=== PATIENT | male | born 1965 | race Caucasian/White ===

== ENCOUNTER 2017-09-12 10:07 | Inpatient (IN) | payer OTHER ==
[~2017-09-12] VITALS: Ht 180.3 cm; Wt 95.3 kg
[2017-09-12 10:07] VITALS: BP 185/107
[~2017-09-12 10:07] MED LIST: ADULT LOW DOSE81 MG PO; AMOXICILLIN875 MG PO; ATENOLOL; BYSTOLIC 5 MG5 M1 PO; CENTRUM SILVER1 EAC2 PO; FLOMAX PO; HIGH CHOLESTEROL; KEFLEX500 MG PO; KLOR-CON 1010 MEQ PO; LIPITOR 20 MG T20 M1 PO; METOPROLOL; NASONEX17 GM INH; NORCO 5-325 TA1 EACH PO; POTASSIUM20 PO; TOPROL XL50 MG; VERAPAMIL ER120 MG PO; VERAPAMIL ER180 MG PO; VITAMIN C120 GM PO; VITAMIN D35000 UNIT PO; ZYRTEC10 M2 PO; [UNRECOGNIZED DRUG - REMARK]
[2017-09-12 10:47] LABS: ABSOLUTE NEUTROPHILS 8.2 thou/uL (1.4-8.2); BASOPHILS 0.6 % (0.0-2.0); EOSINOPHILS 1.5 % (0.0-3.0); HEMATOCRIT 44.1 % (42.0-52.0); HEMOGLOBIN 14.5 gm/dL (14.0-18.0); LYMPHOCYTES 18.7 % (24.0-44.0); MCH 28.9 pg (26.0-34.0); MCHC 32.8 g/dL (28.0-37.0); MONOCYTES 5.4 % (1.0-8.0); PLATELET COUNT 220 thou/uL (150-400); POLYS 73.8 % (36.0-66.0); RBC 5.01 mil/uL (4.50-6.00); RDW 13.9 % (10.5-14.5); WBC 11.1 thou/uL (4.0-11.0)
[2017-09-12 10:59] LABS: MANUAL DIFF NO
[2017-09-12 11:03] LABS: CALCIUM 8.7 mg/dL (8.5-10.1); CREATININE 1.3 mg/dL (0.7-1.3); POTASSIUM 3.5 mmol/L (3.5-5.1)
[2017-09-12 11:09] LABS: TOTAL BILIRUBIN 0.5 mg/dL (<0.1-1.0); TOTAL PROTEIN 7.9 g/dL (6.4-8.2)
[2017-09-12 12:08] LABS: URINE BILIRUBIN NEGATIVE (Negative); URINE BLOOD 3+ (Negative); URINE COLOR YELLOW; URINE GLUCOSE-RANDOM* NEGATIVE (Negative); URINE KETONES NEGATIVE (Negative); URINE NITRITE NEGATIVE (Negative); URINE PROTEIN (DIPSTICK) TRACE (Negative); URINE SPECIFIC GRAVITY >= 1.030 (1.005-1.035); URINE UROBILINOGEN 0.2 E.U./dl (0.2-1.0)
[2017-09-12 12:16] LABS: CASTS None Seen /LPF (None Seen); CRYSTALS None Seen /LPF (None Seen); SQUAMOUS 0-3 Few /LPF (0-3)
[2017-09-12 12:17] LABS: URINE WBC 0-5 Rare /HPF (0-5)
[2017-09-12 12:18] LABS: YEAST Present (None Seen)
[2017-09-12 13:09] VITALS: BP 137/90
[2017-09-12 13:54] VITALS: BP 137/90
[2017-09-12 14:32] VITALS: BP 154/101
[2017-09-12 20:14] VITALS: BP 138/87
[2017-09-13 04:15] VITALS: BP 134/79
[2017-09-13 06:04] LABS: HEMATOCRIT 37.5 % (42.0-52.0); HEMOGLOBIN 12.6 gm/dL (14.0-18.0); MCH 29.6 pg (26.0-34.0); MCHC 33.7 g/dL (28.0-37.0); RBC 4.27 mil/uL (4.50-6.00); WBC 9.3 thou/uL (4.0-11.0)
[2017-09-13 06:08] LABS: CALCIUM 7.9 mg/dL (8.5-10.1); CREATININE 1.2 mg/dL (0.7-1.3); POTASSIUM 3.6 mmol/L (3.5-5.1)
[2017-09-13 06:12] LABS: ALBUMIN 3.1 g/dL (3.4-5.0); PHOSPHORUS 2.9 mg/dL (2.5-4.9)
[2017-09-13 07:36] VITALS: BP 121/75
[2017-09-13] MEDS ORDERED: FLOMAX0.4 MG PO (09:58)
[2017-09-13 14:30] VITALS: BP 121/75
== END 2017-09-13 15:01 | disposition home or self-care (01) | DRG 694 ==
LOC: ER 10:07 → EROBS 12:42 → 4E 12:42
PROVIDERS: Hospitalist; Physician Assistant
DX: N13.2 Hydronephrosis with renal and ureteral calculous obstruction (principal); N13.4 Hydroureter; I10 Essential (primary) hypertension; E78.5 Hyperlipidemia, unspecified; Z95.810 Presence of automatic (implantable) cardiac defibrillator; Z90.49 Acquired absence of other specified parts of digestive tract; Z79.82 Long term (current) use of aspirin; Z79.899 Other long term (current) drug therapy
CPT/HCPCS: 10183

== ENCOUNTER → 2019-06-06 | Outpatient (CLI) | payer OTHER ==
[~2019-06-06] MED LIST changes: +FLOMAX0.4 MG PO
== END ==
LOC: CAT 14:08
DX: Z13.6 Encounter for screening for cardiovascular disorders (principal); E78.00 Pure hypercholesterolemia, unspecified; I25.10 Atherosclerotic heart disease of native coronary artery without angina pectoris

== ENCOUNTER 2019-11-26 14:54 | Emergency (ER) | payer OTHER ==
[~2019-11-26] VITALS: Ht 182.9 cm; Wt 107.5 kg
[2019-11-26] MEDS ORDERED: TOPROL XL100 MG PO (15:21)
[2019-11-26] MEDS ORDERED: VERAPAMIL E.R240 M1 PO (15:21)
[2019-11-26] MEDS ORDERED: CHILDREN'S ZYRT10 M1 PO (15:21)
[2019-11-26] MEDS ORDERED: ALLER-FLO15.8 ML NASAL (15:21)
[2019-11-26] MEDS ORDERED: FISH OIL 1,0001 EAC9 PO (15:22)
[2019-11-26 15:26] LABS: ABSOLUTE NEUTROPHILS 3.5 thou/uL (1.4-8.2); BASOPHILS 0.9 % (0.0-2.0); EOSINOPHILS 2.9 % (0.0-3.0); HEMATOCRIT 43.6 % (42.0-52.0); HEMOGLOBIN 14.4 gm/dL (14.0-18.0); LYMPHOCYTES 28.7 % (24.0-44.0); MCH 29.3 pg (26.0-34.0); MCV 88.9 fL (80.0-100.0); MONOCYTES 7.7 % (1.0-8.0); PLATELET COUNT 216 thou/uL (150-400); POLYS 59.8 % (36.0-66.0); RBC 4.91 mil/uL (4.50-6.00); RDW 13.8 % (10.5-14.5); WBC 5.9 thou/uL (4.0-11.0)
[2019-11-26 15:34] LABS: CALCIUM 8.9 mg/dL (8.5-10.1); CREATININE 1.1 mg/dL (0.7-1.3); POTASSIUM 4.1 mmol/L (3.5-5.1)
[2019-11-26 15:40] LABS: ALBUMIN 3.8 g/dL (3.4-5.0); APTT 28.2 Seconds (24.5-32.8); PROTIME 10.4 Seconds (9.3-11.4); TOTAL BILIRUBIN 0.6 mg/dL (<0.1-1.0); TOTAL PROTEIN 7.6 g/dL (6.4-8.2)
[2019-11-26 16:50] VITALS: BP 138/91
--- NOTE | 2019-11-27 08:20 | EKG ---
[facility] [place] [address] ELECTROCARDIOGRAM REPORT Name: BARB NICOLE Room #: DEP [facility]#: [id number] Admission: 11/26/19 Attend Phys: Discharge: 11/26/19 Date of : 63 Report #: [id number] THIS REPORT FOR: cc: Royer Kang MD, Neal A. MD Couchonnal, Luis F. MD ~ THIS REPORT FOR: //name// [facility] ED Test Date: 2019-11-26 Test Time: 15:58:42 Pat Name: BARB NICOLE Department: Room: Gender: Rock Crusher[facility] 1965 Requested By: Marcial Swain Order Number: [id number] MD: Todd Marie Measurements Intervals [place] Rate: 83 P: 50 VA: 170 QRS: 28 QRSD: 102 T: 17 QT: 372 QTc: 437 Interpretive Statements Sinus rhythm Probable left atrial enlargement Compared to ECG 02/25/2016 15:17:10 Myocardial infarct finding no longer present Electronically Signed On 11-27-2019 8:19:23 PHARMACY CLINICAL SPECIALIST by Todd Marie [email or web address] <ELECTRONICALLY SIGNED> By: Todd Marie MD 11/27/19 0819 1558 1558 Todd Marie MD /EPI
== END 2019-11-26 16:50 | disposition short-term general hospital (02) ==
LOC: ER 14:54
PROVIDERS: Emergency Medicine
DX: I63.9 Cerebral infarction, unspecified (principal); I10 Essential (primary) hypertension; E78.5 Hyperlipidemia, unspecified; G47.30 Sleep apnea, unspecified; Z87.442 Personal history of urinary calculi

== ENCOUNTER 2020-03-11 14:28 | Inpatient (IN) | payer OTHER ==
[2020-03-11] VITALS (22 sets, daily range): BP systolic 111–160; BP diastolic 68–97
[~2020-03-11] VITALS: Ht 180.3 cm; Wt 103.0 kg
--- NOTE | ~2020-03-11 | HC ---
[facility] [place] [address] CONSULTATION Name: BARB NICOLE Emmie [facility] [id number] Admission: 03/11/20 Attend Phys: Discharge: Date of : 63 Report #: [id number] THIS REPORT FOR: cc: Royer Kang MD, Neal A. MD Khosla,Jabari Mcgee MD ~ CC: Marcial Kang DATE OF SERVICE: 03/11/2020 HISTORY OF PRESENT ILLNESS: This is a 55-year-old male patient who was seen by me as a stroke protocol. There is a very difficult decision making patient because of multiple things discussed below. I was called by Dr. Swain Emergency Room physician for stroke in this patient. He indicated that this patient had presented to him about three and a half months ago with stroke-like symptoms and they gave him TPA and [facility]. I do not have any records here from the [facility] but did not find anything as far as I understand. He does have a defibrillator. His symptoms are right hemianopsia and right-sided weakness and numbness. The symptoms were profound. He had some symptoms on the right and the left eye, but it is improving in the left eye, but the right eye is still he said he can barely see anything. He says he has no history of migraine headache. I had seen this patient in the office and had recommended that he saw a vascular neurologist [facility] and he did not want to do that. I have multiple concerns in this patient, but I do not know what to do with the short time we have. I reviewed acutely his records in the computer and this patient had a CT scan going as far back as 2006. He does not remember any of those. He had two MRI, one in 2007 and one of them in 2006, both of them were with and without contrast. He does not know why it was done. He does have a small venous angioma. Last time when he was here, we started the patient on Plavix and he is not on a combination of aspirin and Plavix and he is just on Plavix. His deficit is pretty dense and it is on the right side. He denies any psychiatric history. He denies any history of migraine. PHYSICAL EXAMINATION: Exam is limited, but he has dense problem with the right eye. He can see, but I do not think it is a classical hemianopsia because he said he can barely see anything with the right eye. He can move slightly the right upper and right lower extremity. He said he has a dense sensory loss on the right side. Because of time constraint that was the examination, which was done. IMPRESSION: I am concerned in this patient. Although we have seen this patient for stroke, I am not certain these are stroke and they are not migraine variant or even other psychiatric condition. The problem with that diagnosis is that I cannot be certain at this stage. This is concerning in this patient. On the other hand, I do not have any good method of excluding the stroke either because [address] [address] CONSULTATION Name: BARB NICOLE Room #: REG [facility]#: [id number] Admission: 03/11/20 Attend Phys: Discharge: Date of : 63 Report #: [id number] angio and perfusion can be normal in the stroke and I cannot do an MRI because of his defibrillator. He tells me it is incompatible with MRI. So, we are stuck here. I discussed the situation completely and very frankly with the patient. I completely told him that I am not certain about the diagnosis of stroke, but I cannot rule it out. I discussed with him that we can give him TPA or not given TPA. He is very concerned with his deficit and he wanted the TPA. He understood the complication of TPA, especially in light of the fact that he is on Plavix and he may have a venous angioma. He did not bleed last time, but that does not guarantee that he will not bleed and he understands the bleeding can be catastrophic. I do not know what else we can do in this circumstances. His PT/PTT was not done, but he is not on any Coumadin, so I asked him to do it stat and by the time it was realized that his PT/PTT was not done and I check that he had already gotten the TPA. Exclusion criteria was done by Emergency Room physician, they had the blood, but lab did not do PT/PTT. In any event, the patient's deficit is strong, but I think ultimately we decided we will go ahead and give him TPA, but he definitely needs to go to the vascular neurologist to see what to do if this circumstances occur in future, but I explained to the patient in great detail that we are not certain about the diagnosis of TPA and he has both option and it is very difficult management problem and since he wanted to really get the TPA and he is pretty familiar with it because of his last episode we went ahead and gave TPA on him. Thank you very much for this referral and we will follow this patient along with you. By: 1604 1626 Jabari Abdullahi MD /nt
[~2020-03-11 14:28] MED LIST changes: +ALLER-FLO15.8 ML NASAL; +CHILDREN'S ZYRT10 M1 PO; +FISH OIL 1,0001 EAC9 PO; +TOPROL XL100 MG PO; +VERAPAMIL E.R240 M1 PO
[2020-03-11] MEDS ORDERED: PLAVIX 75 MG TA75 MG PO (14:48)
[2020-03-11 14:56] LABS: ABSOLUTE NEUTROPHILS 2.9 thou/uL (1.4-8.2); BASOPHILS 0.9 % (0.0-2.0); HEMATOCRIT 42.9 % (42.0-52.0); HEMOGLOBIN 14.6 gm/dL (14.0-18.0); LYMPHOCYTES 34.2 % (24.0-44.0); MCH 29.9 pg (26.0-34.0); MCV 87.9 fL (80.0-100.0); MONOCYTES 7.7 % (1.0-8.0); PLATELET COUNT 216 thou/uL (150-400); POLYS 53.2 % (36.0-66.0); RBC 4.88 mil/uL (4.50-6.00); RDW 13.9 % (10.5-14.5); WBC 5.4 thou/uL (4.0-11.0)
[2020-03-11 15:03] LABS: CALCIUM 8.5 mg/dL (8.5-10.1); CREATININE 1.1 mg/dL (0.7-1.3); POTASSIUM 3.9 mmol/L (3.5-5.1)
[2020-03-11 15:09] LABS: ALBUMIN 3.9 g/dL (3.4-5.0); TOTAL BILIRUBIN 0.6 mg/dL (0.2-1.0); TOTAL PROTEIN 7.6 g/dL (6.4-8.2)
--- NOTE | 2020-03-11 15:16 | NUR ---
Pt taken to complete CTA with this RN and Armand, simulation technician
--- NOTE | 2020-03-11 15:36 | NUR ---
VERBAL ORDERS PER DR GOMEZ AND DR ODONNELL TO INITATE ALTEPLASE INFUSION. ORDERS VERIFIED AND CONFIRMED BY THIS RN.
[2020-03-11 16:13] LABS: APTT 29.3 Seconds (24.5-32.8); PROTIME 10.3 Seconds (9.3-11.4)
--- NOTE | 2020-03-11 17:16 | NUR ---
Pt assisted to use urinal at bedside
--- NOTE | 2020-03-11 17:20 | NUR ---
see attached paper charting for additional vitals.
--- NOTE | 2020-03-11 19:29 | NUR ---
1744- Patient arrived to ICU via ED cart with ED RN. He was helped over to the ICU via sliding over to bed. Assessment performed, NIH stroke scale performed. He is alert and oriented. 1849- Nurse paged Dr. Kang in regards to patient request to see if he can eat. 1914- Dr. Kang returned call, orders received. Post TPA, patient is progressing towards plan of care as evidence by NIH from 12 to 2. Patient expressed his vision is improving and there is no drift noted on limbs. Plan of care is to continue post TPA protocol and monitor for s/s of bleeding.
--- NOTE | 2020-03-11 19:48 | NUR ---
PATIENT PASSED NURSING BEDSIDE SWALLOW EVALUATION AT THIS TIME. NO S/SX OF ASPIRATION.
[2020-03-11 21:08] LABS: URINE BILIRUBIN NEGATIVE (Negative); URINE BLOOD NEGATIVE (Negative); URINE CLARITY CLEAR; URINE COLOR YELLOW; URINE GLUCOSE-RANDOM* NEGATIVE (Negative); URINE KETONES NEGATIVE (Negative); URINE LEUKOCYTES-REFLEX NEGATIVE (Negative); URINE NITRITE-REFLEX NEGATIVE (Negative); URINE PROTEIN (DIPSTICK) NEGATIVE (Negative); URINE UROBILINOGEN 0.2 E.U./dl (0.2-1.0)
[2020-03-12] VITALS (32 sets, daily range): BP systolic 107–143; BP diastolic 71–91
--- NOTE | 2020-03-12 06:32 | NUR ---
PATIENT HAS REMAINED STABLE THROUGH THE NIGHT. PATIENT A/OX4. MOVES ALL EXTREMITIES AND FOLLOWS ALL COMMANDS. NIH SCORE AT THIS TIME IS 0. SB/SR ON THE MONITOR. BP STABLE. AFEBRILE. ROOM AIR. REGULAR DIET. VOIDS PER URINAL. HAD A TOTAL OF 1300CC OF URINE OUTPUT. BOWEL MOVEMENT X1, BROWN AND FORMED. NO IV FLUIDS/GTTS INFUSING AT THIS TIME. WILL REPORT OFF TO DAY SHIFT RN.
--- NOTE | 2020-03-12 08:18 | EKG ---
[facility] [place] [address] ELECTROCARDIOGRAM REPORT Name: BARB NICOLE Room #: [facility]- ADM IN M.R.#: [id number] Admission: 03/11/20 Attend Phys: Royer Kang MD Discharge: Date of : 63 Report #: [id number] THIS REPORT FOR: cc: Royer Kang MD, Neal A. MD Lundgren,Stevie Squires MD [facility] ~ THIS REPORT FOR: //name// [facility] ED Test Date: 2020-03-11 Test Time: 15:30:58 Pat Name: BARB NICOLE Department: Room: [facility] Gender: M Drilling Engineer: юлия : 1965 Requested By: Marcial Swain Order Number: [id number] MD: Stevie Boland Measurements Intervals [place] Rate: 80 P: 49 [place]: 174 QRS: 10 QRSD: 107 T: 18 QT: 380 QTc: 439 Interpretive Statements Sinus rhythm Inferior infarct, age indeterminate Compared to ECG 11/26/2019 15:58:42 No significant changes Electronically Signed On 03-12-2020 8:16:47 CDT by Stevie Boland [email or web address] <ELECTRONICALLY SIGNED> By: Stevie Boland MD, [facility] 03/12/20 0816 1530 1530 Stevie Boland MD, [facility] /EPI
--- NOTE | 2020-03-12 13:29 | NUR ---
ASSUMED CARE OF PT AT 0800. OCNTINUE STROKE PROTOCOL. PLAN TO DC HOME TODAY PER DR BOLTON AND BELLE. UP WITH ASSIST, WAITING FOR PT/OT EVAL. PASSED SWALLOW EVAL. HANDED OFF PT AT [facility].
--- NOTE | 2020-03-12 16:06 | NUR ---
DISCONTINUE IV'S AND TELE. PT UNDERSTANDS ALL FOLLOW UP ORDERS. WILL DISCHARGE TO HOME VIA PRIVATE VEHICLE.
== END 2020-03-12 16:15 | disposition home or self-care (01) | DRG 63 ==
LOC: ER 14:28 → EROBS 16:43 → ICU 16:43
PROVIDERS: Emergency Medicine; ADMIT Family Medicine
DX: I63.9 Cerebral infarction, unspecified (principal); I10 Essential (primary) hypertension; E78.5 Hyperlipidemia, unspecified; Z90.49 Acquired absence of other specified parts of digestive tract; Z95.810 Presence of automatic (implantable) cardiac defibrillator; Z87.442 Personal history of urinary calculi; Z91.040 Latex allergy status; Z79.899 Other long term (current) drug therapy
CPT/HCPCS: 10078

== ENCOUNTER 2020-08-13 08:32 | Emergency (ER) | payer OTHER ==
[~2020-08-13] VITALS: Ht 180.3 cm; Wt 102.1 kg
[~2020-08-13 08:32] MED LIST changes: +PLAVIX 75 MG TA75 MG PO
--- NOTE | 2020-08-13 09:02 | EKG ---
[facility] [place] [address] ELECTROCARDIOGRAM REPORT Name: BARB NICOLE Room #: REG [facility]#: [id number] Admission: 08/13/20 Attend Phys: Discharge: Date of : 63 Report #: [id number] THIS REPORT FOR: cc: Royer Kang MD, Neal A. MD Lundgren,Stevie Squires MD [facility] ~ THIS REPORT FOR: //name// [facility] ED Test Date: 2020-08-13 Test Time: 08:52:09 Pat Name: BARB NICOLE Department: Room: Gender: Regulator Tester: [facility] : 1965 Requested By: Devan Hitchcock Order Number: [id number] MD: Stevie Boland Measurements Intervals [place] Rate: 78 P: 34 [place]: 156 QRS: -4 QRSD: 98 T: 7 QT: 378 QTc: 431 Interpretive Statements Sinus rhythm Abnormal R-wave progression, late transition Inferior infarct, age indeterminate Compared to ECG 03/11/2020 15:30:58 No significant change was found Electronically Signed On 08-13-2020 9:02:26 INVESTIGATOR FRAUD by Stevie Boland [email or web address] <ELECTRONICALLY SIGNED> By: Stevie Boland MD, [facility] 08/13/2002 Stevie Boland MD, [facility] /EPI
[2020-08-13 09:21] LABS: ABSOLUTE NEUTROPHILS 3.2 thou/uL (1.4-8.2); BASOPHILS 0.9 % (0.0-2.0); HEMATOCRIT 41.7 % (42.0-52.0); HEMOGLOBIN 13.9 gm/dL (14.0-18.0); LYMPHOCYTES 31.4 % (24.0-44.0); MCH 29.7 pg (26.0-34.0); MCHC 33.4 g/dL (28.0-37.0); MCV 88.9 fL (80.0-100.0); MONOCYTES 8.2 % (1.0-8.0); PLATELET COUNT 222 thou/uL (150-400); POLYS 55.5 % (36.0-66.0); RBC 4.68 mil/uL (4.50-6.00); RDW 13.8 % (10.5-14.5); WBC 5.8 thou/uL (4.0-11.0)
[2020-08-13 09:27] LABS: ANION GAP 13 mmol/L (7-16); BUN 12 mg/dL (7-18); CALCIUM 8.7 mg/dL (8.5-10.1); CHLORIDE 104 mmol/L (98-107); CO2 24 mmol/L (21-32); CREATININE 1.2 mg/dL (0.7-1.3); GLUCOSE 132 mg/dL (74-106); POTASSIUM 3.9 mmol/L (3.5-5.1); SODIUM 141 mmol/L (136-145)
[2020-08-13 09:39] LABS: ALBUMIN 3.7 g/dL (3.4-5.0); LIPASE 128 U/L (73-393); MAGNESIUM 2.1 mg/dL (1.8-2.4); SGOT 23 U/L (15-37); SGPT 28 U/L (30-65); TOTAL BILIRUBIN 0.4 mg/dL (0.2-1.0); TOTAL PROTEIN 7.4 g/dL (6.4-8.2); TROPONIN-I <0.06 ng/mL (<0.06)
[2020-08-13 10:42] LABS: URINE BILIRUBIN NEGATIVE (Negative); URINE BLOOD NEGATIVE (Negative); URINE CLARITY CLEAR; URINE COLOR YELLOW; URINE GLUCOSE-RANDOM* NEGATIVE (Negative); URINE KETONES NEGATIVE (Negative); URINE LEUKOCYTES-REFLEX NEGATIVE (Negative); URINE NITRITE-REFLEX NEGATIVE (Negative); URINE PROTEIN (DIPSTICK) NEGATIVE (Negative); URINE UROBILINOGEN 0.2 E.U./dl (0.2-1.0)
[2020-08-13 11:56] VITALS: BP 128/94
[2020-08-13] MEDS ORDERED: NORFLEX100 MG PO (11:57)
[2020-08-13] MEDS ORDERED: PREDNISONE 20 M20 MG PO (11:57)
== END 2020-08-13 12:00 | disposition home or self-care (01) ==
LOC: ER 08:32
PROVIDERS: Emergency Medicine
DX: R51.9 Headache, unspecified (principal); R53.1 Weakness; R07.89 Other chest pain; G47.33 Obstructive sleep apnea (adult) (pediatric); Z20.828 Contact with and (suspected) exposure to other viral communicable diseases; M54.2 Cervicalgia; I10 Essential (primary) hypertension; E78.5 Hyperlipidemia, unspecified; Z95.810 Presence of automatic (implantable) cardiac defibrillator; Z86.73 Personal history of transient ischemic attack (TIA), and cerebral infarction without residual deficits; Z90.49 Acquired absence of other specified parts of digestive tract; Z87.442 Personal history of urinary calculi; Z79.899 Other long term (current) drug therapy; Z91.040 Latex allergy status

== ENCOUNTER → 2020-08-14 | Outpatient (CLI) | payer OTHER ==
[~2020-08-14] MED LIST changes: +NORFLEX100 MG PO; +PREDNISONE 20 M20 MG PO
[2020-08-14 12:24] LABS: ABSOLUTE NEUTROPHILS 3.7 thou/uL (1.4-8.2); BASOPHILS 0.9 % (0.0-2.0); EOSINOPHILS 5.2 % (0.0-3.0); HEMATOCRIT 43.8 % (42.0-52.0); HEMOGLOBIN 14.6 gm/dL (14.0-18.0); LYMPHOCYTES 29.1 % (24.0-44.0); MCH 29.8 pg (26.0-34.0); MCHC 33.3 g/dL (28.0-37.0); MCV 89.5 fL (80.0-100.0); PLATELET COUNT 232 thou/uL (150-400); POLYS 56.8 % (36.0-66.0); RBC 4.89 mil/uL (4.50-6.00); WBC 6.6 thou/uL (4.0-11.0)
[2020-08-14 12:30] LABS: URINE BILIRUBIN NEGATIVE (Negative); URINE BLOOD NEGATIVE (Negative); URINE CLARITY CLEAR; URINE COLOR YELLOW; URINE GLUCOSE-RANDOM* NEGATIVE (Negative); URINE KETONES NEGATIVE (Negative); URINE LEUKOCYTES-REFLEX NEGATIVE (Negative); URINE NITRITE-REFLEX NEGATIVE (Negative); URINE PROTEIN (DIPSTICK) NEGATIVE (Negative); URINE SPECIFIC GRAVITY 1.015 (1.005-1.035); URINE UROBILINOGEN 0.2 E.U./dl (0.2-1.0)
[2020-08-14 12:41] LABS: ANION GAP 6 mmol/L (7-16); BUN 10 mg/dL (7-18); CALCIUM 8.9 mg/dL (8.5-10.1); CHLORIDE 104 mmol/L (98-107); CHOLESTEROL 213 mg/dL (<200); CO2 27 mmol/L (21-32); CREATININE 1.2 mg/dL (0.7-1.3); GLUCOSE 111 mg/dL (74-106); HDL CHOLESTEROL 52 mg/dL (>40); LDL CHOLESTEROL 120 mg/dL (<100); POTASSIUM 4.2 mmol/L (3.5-5.1); SGOT 12 U/L (15-37); SGPT 30 U/L (30-65); SODIUM 137 mmol/L (136-145); TC:HDL 4.1 Ratio (Not establshd); TOTAL BILIRUBIN 0.6 mg/dL (0.2-1.0); TOTAL PROTEIN 7.6 g/dL (6.4-8.2); TRIGLYCERIDE 205 mg/dL (<150); VLDL 41 mg/dL (<40)
== END ==
LOC: LAB 11:55
PROVIDERS: ATTEND Family Medicine
DX: Z00.00 Encounter for general adult medical examination without abnormal findings (principal)

== ENCOUNTER 2020-10-28 15:34 | Emergency (ER) | payer OTHER ==
[~2020-10-28] VITALS: Ht 180.3 cm; Wt 95.3 kg
[2020-10-28 16:00] LABS: ABSOLUTE NEUTROPHILS 3.4 thou/uL (1.4-8.2); BASOPHILS 0.8 % (0.0-2.0); EOSINOPHILS 3.7 % (0.0-3.0); HEMATOCRIT 42.2 % (42.0-52.0); HEMOGLOBIN 13.9 gm/dL (14.0-18.0); LYMPHOCYTES 30.2 % (24.0-44.0); MCH 29.2 pg (26.0-34.0); MCV 88.5 fL (80.0-100.0); MONOCYTES 9.1 % (1.0-8.0); PLATELET COUNT 197 thou/uL (150-400); POLYS 56.2 % (36.0-66.0); RBC 4.76 mil/uL (4.50-6.00); RDW 13.8 % (10.5-14.5)
[2020-10-28 16:05] LABS: ANION GAP 12 mmol/L (7-16); BUN 15 mg/dL (7-18); CALCIUM 9.3 mg/dL (8.5-10.1); CHLORIDE 103 mmol/L (98-107); CO2 23 mmol/L (21-32); CREATININE 1.1 mg/dL (0.7-1.3); GLUCOSE 134 mg/dL (74-106); POTASSIUM 4.1 mmol/L (3.5-5.1); SODIUM 138 mmol/L (136-145)
[2020-10-28 16:15] LABS: ALBUMIN 3.9 g/dL (3.4-5.0); SGOT 25 U/L (15-37); SGPT 21 U/L (16-63); TOTAL BILIRUBIN 0.7 mg/dL (0.2-1.0); TOTAL PROTEIN 7.6 g/dL (6.4-8.2); TROPONIN-I <0.06 ng/mL (<0.06)
--- NOTE | 2020-10-28 16:30 | EKG ---
[address] [address] ELECTROCARDIOGRAM REPORT Name: BARB NICOLE Room #: [facility]#: [id number] Admission: Attend Phys: Discharge: Date of : 63 Report #: [id number] [facility] ED Test Date: 2020-10-28 Test Time: 16:00:51 Pat Name: BARB NICOLE Department: Room: Gender: M Lab Head: Emmie : 1965 Requested By: Barb Martinez Order Number: [id number] MD: Gonzalez Ch Measurements Intervals [place] Rate: 72 P: 35 [place]: 193 QRS: 9 QRSD: 101 T: 13 QT: 397 QTc: 435 Interpretive Statements Sinus rhythm Compared to ECG 08/13/2020 08:52:09 No significant change Electronically Signed On 10-28-2020 16:29:56 STOCK FEEDER by Gonzalez Ch [email or web address] <ELECTRONICALLY SIGNED> By: Gonzalez Ch MD, [facility] 10/28/20 1629 [address] [facility] [place] Gonzalez Ch MD, FACC /EPI
[2020-10-28 16:56] VITALS: BP 120/82
== END 2020-10-28 16:59 | disposition home or self-care (01) ==
LOC: ER 15:34
PROVIDERS: Emergency Medicine
DX: R55 Syncope and collapse (principal); R53.1 Weakness; E78.5 Hyperlipidemia, unspecified; I10 Essential (primary) hypertension; Z86.73 Personal history of transient ischemic attack (TIA), and cerebral infarction without residual deficits; Z87.442 Personal history of urinary calculi; Z90.49 Acquired absence of other specified parts of digestive tract; Z79.899 Other long term (current) drug therapy; Z91.040 Latex allergy status

== ENCOUNTER 2021-03-12 15:48 | Inpatient (IN) | payer OTHER ==
[~2021-03-12] VITALS: Ht 152.4 cm; Wt 103.0 kg
[2021-03-12 15:49] VITALS: BP 149/92
[2021-03-12 17:17] LABS: ABSOLUTE NEUTROPHILS 3.4 thou/uL (1.4-8.2); BASOPHILS 1.1 % (0.0-2.0); EOSINOPHILS 2.1 % (0.0-3.0); HEMATOCRIT 42.1 % (42.0-52.0); HEMOGLOBIN 14.3 gm/dL (14.0-18.0); LYMPHOCYTES 27.9 % (24.0-44.0); MCH 29.9 pg (26.0-34.0); MCV 87.9 fL (80.0-100.0); MONOCYTES 8.4 % (1.0-8.0); PLATELET COUNT 216 thou/uL (150-400); POLYS 60.5 % (36.0-66.0); RBC 4.78 mil/uL (4.50-6.00); RDW 13.7 % (10.5-14.5); WBC 5.7 thou/uL (4.0-11.0)
[2021-03-12 17:25] LABS: ANION GAP 9 mmol/L (7-16); BUN 17 mg/dL (7-18); CALCIUM 9.2 mg/dL (8.5-10.1); CHLORIDE 103 mmol/L (98-107); CO2 23 mmol/L (21-32); CREATININE 1.1 mg/dL (0.7-1.3); GLUCOSE 115 mg/dL (74-106); POTASSIUM 3.9 mmol/L (3.5-5.1); SODIUM 135 mmol/L (136-145)
[2021-03-12 17:35] LABS: ALBUMIN 3.9 g/dL (3.4-5.0); MAGNESIUM 2.1 mg/dL (1.8-2.4); SGOT 24 U/L (15-37); SGPT 33 U/L (16-63); TOTAL BILIRUBIN 0.7 mg/dL (0.2-1.0); TOTAL PROTEIN 7.7 g/dL (6.4-8.2); TROPONIN-I <0.06 ng/mL (<0.06)
--- NOTE | 2021-03-12 17:41 | NUR ---
PACEMAKER INTERROGATED AT THIS TIME
[2021-03-12 20:03] VITALS: BP 113/76
[2021-03-12 20:16] VITALS: BP 133/89
[2021-03-13 03:56] VITALS: BP 110/71
--- NOTE | 2021-03-13 05:14 | NUR ---
PATIENTS CARES WERE ASSUMED AFTER THE TRANSFER FROM ER. PATIENT WAS ASSESSED AND MEDS WERE PASSED. PATIENT WAS ATMITTED TO THE UNITE AND CONSULTS WERE CALLED. ROUNDS WERE DONE. THE BED IS IN A LOW AND OCKED POSITION.
--- NOTE | 2021-03-13 06:59 | EKG ---
[address] [place] [address] ELECTROCARDIOGRAM REPORT Name: NICOLEBARB Room #: 200-I ADM IN [facility]#: [id number] Admission: 03/12/21 Attend Phys: Royer Kang MD Discharge: Date of : 63 Report #: [id number] [facility] ED Test Date: 2021-03-12 Test Time: 16:17:32 Pat Name: BARB NICOLE Department: Room: [facility] Gender: M District Or District Office Director: : 1965 Requested By: Carmenza Eller Order Number: [id number] MD: Gonzalez Ch Measurements Intervals [place] Rate: 78 P: 23 VT: 174 QRS: -7 QRSD: 97 T: 11 QT: 373 QTc: 425 Interpretive Statements Sinus rhythm Probable left atrial enlargement Abnormal R-wave progression, late transition Compared to ECG 10/28/2020 16:00:51 No significant changes Electronically Signed On 03-13-2021 6:59:05 CDT by Gonzalez Ch [email or web address] <ELECTRONICALLY SIGNED> By: Gonzalez Ch MD, [facility] 03/13/21 0659 16 16 Gonzalez Ch MD, [facility] /EPI
[2021-03-13 07:40] VITALS: BP 117/75
[2021-03-13 10:06] VITALS: BP 117/75
--- NOTE | 2021-03-13 10:19 | NUR ---
ASSESSMENT CHARTED. PT ALERT AND ORIENTED. VSS. DENIED HAVING PAIN OR DISCOMFORT. SEEN BY DR. BOLTON AND CARDIOLOGY. ORDERS GIVEN TO DISCHARGE PT TO HOME. DISCHARGE INSTRUCTIONS GIVEN TO PT. PT VERBERLISED UNDERSTANDING.
== END 2021-03-13 10:25 | disposition home or self-care (01) | DRG 305 ==
LOC: ER 15:48 → EROBS 19:27 → 2N 21:09
PROVIDERS: Emergency Medicine; ADMIT Family Medicine; ATTEND Family Medicine
PROC: 4B02XSZ Measurement of Cardiac Pacemaker, External Approach (ICD-10-PCS; principal; 2021-03-12)
DX: I10 Essential (primary) hypertension (principal); I69.354 Hemiplegia and hemiparesis following cerebral infarction affecting left non-dominant side; R55 Syncope and collapse; E78.5 Hyperlipidemia, unspecified; Z90.49 Acquired absence of other specified parts of digestive tract; Z95.810 Presence of automatic (implantable) cardiac defibrillator; Z87.442 Personal history of urinary calculi; Z91.040 Latex allergy status
CPT/HCPCS: 10081

== ENCOUNTER → 2021-03-17 | Outpatient (CLI) | payer OTHER | LOC: SJCVCIMAG 07:06 | PROVIDERS: ATTEND Internal Medicine Cardiovascular Disease | DX: I35.8 Other nonrheumatic aortic valve disorders (principal); I49.3 Ventricular premature depolarization; I25.10 Atherosclerotic heart disease of native coronary artery without angina pectoris; I63.9 Cerebral infarction, unspecified; I10 Essential (primary) hypertension; R55 Syncope and collapse; Z95.810 Presence of automatic (implantable) cardiac defibrillator; Z79.899 Other long term (current) drug therapy; Z82.49 Family history of ischemic heart disease and other diseases of the circulatory system ==

== ENCOUNTER → 2021-08-20 | Outpatient (CLI) | payer OTHER ==
[2021-08-20 14:59] LABS: ABSOLUTE NEUTROPHILS 2.6 thou/uL (1.4-8.2); BASOPHILS 0.7 % (0.0-2.0); EOSINOPHILS 2.7 % (0.0-3.0); HEMATOCRIT 45.2 % (42.0-52.0); HEMOGLOBIN 15.4 gm/dL (14.0-18.0); LYMPHOCYTES 36.6 % (24.0-44.0); MCH 30.3 pg (26.0-34.0); MCHC 34.2 g/dL (28.0-37.0); MCV 88.5 fL (80.0-100.0); MONOCYTES 9.9 % (1.0-8.0); PLATELET COUNT 246 thou/uL (150-400); POLYS 50.1 % (36.0-66.0); RDW 13.5 % (10.5-14.5); WBC 5.1 thou/uL (4.0-11.0)
[2021-08-20 15:09] LABS: ALBUMIN 4.3 g/dL (3.4-5.0); ANION GAP 9 mmol/L (7-16); BUN 18 mg/dL (7-18); CALCIUM 9.2 mg/dL (8.5-10.1); CHLORIDE 100 mmol/L (98-107); CHOLESTEROL 218 mg/dL (<200); CO2 27 mmol/L (21-32); CREATININE 1.1 mg/dL (0.7-1.3); GLUCOSE 84 mg/dL (74-106); HDL CHOLESTEROL 53 mg/dL (>40); LDL CHOLESTEROL 128 mg/dL (<100); POTASSIUM 4.3 mmol/L (3.5-5.1); SGOT 25 U/L (15-37); SGPT 29 U/L (30-65); SODIUM 136 mmol/L (136-145); TC:HDL 4.1 Ratio (Not establshd); TOTAL BILIRUBIN 1.4 mg/dL (0.2-1.0); TOTAL PROTEIN 7.8 g/dL (6.4-8.2); TRIGLYCERIDE 185 mg/dL (<150); VLDL 37 mg/dL (<40)
== END ==
LOC: LAB 11:59
PROVIDERS: ATTEND Family Medicine
DX: Z00.00 Encounter for general adult medical examination without abnormal findings (principal)

== ENCOUNTER 2021-10-14 22:06 | Emergency (ER) | payer OTHER ==
[~2021-10-14] VITALS: Ht 180.3 cm; Wt 102.1 kg
[2021-10-15] MEDS ORDERED: CLEOCIN HCL300 MG PO (01:15)
[2021-10-15 01:24] VITALS: BP 122/83
== END 2021-10-15 01:25 | disposition home or self-care (01) ==
LOC: ER 22:06
PROVIDERS: Emergency Medicine
DX: R07.0 Pain in throat (principal); Z20.822 Contact with and (suspected) exposure to COVID-19; B96.89 Other specified bacterial agents as the cause of diseases classified elsewhere; I10 Essential (primary) hypertension; E78.5 Hyperlipidemia, unspecified; Z87.442 Personal history of urinary calculi; Z79.891 Long term (current) use of opiate analgesic; Z79.1 Long term (current) use of non-steroidal anti-inflammatories (NSAID); Z79.899 Other long term (current) drug therapy; Z91.040 Latex allergy status

== ENCOUNTER 2021-11-08 18:48 | Emergency (ER) | payer OTHER ==
[~2021-11-08] VITALS: Ht 180.3 cm; Wt 99.3 kg
[~2021-11-08 18:48] MED LIST changes: +CLEOCIN HCL300 MG PO
[2021-11-08] MEDS ORDERED: MEDROLDOSEPACK PO (19:52)
[2021-11-08] MEDS ORDERED: TESSALON PERLE100 MG PO (19:52)
[2021-11-08 20:13] VITALS: BP 136/88
== END 2021-11-08 20:13 | disposition home or self-care (01) ==
LOC: ER 18:48
DX: J10.00 Influenza due to other identified influenza virus with unspecified type of pneumonia (principal); Z20.822 Contact with and (suspected) exposure to COVID-19; J10.1 Influenza due to other identified influenza virus with other respiratory manifestations; I10 Essential (primary) hypertension; E78.5 Hyperlipidemia, unspecified; Z90.49 Acquired absence of other specified parts of digestive tract; Z79.899 Other long term (current) drug therapy; Z91.040 Latex allergy status